=== PATIENT | female | born 1985 | race Caucasian/White ===

== ENCOUNTER 2017-03-13 10:57 | Emergency (ER) | payer MEDICARE, MEDICAID ==
[~2017-03-13] VITALS: Ht 149.9 cm; Wt 62.9 kg
[~2017-03-13 10:57] MED LIST: ACET-44 PO; ARIP10TA17 PO; AZIT250T6 PO; BUPR-51 PO; BUPR300T20 PO; CETI10TA80 PO; CITA-50 PO; DICL100G13 TOP; DOCU-273 PO; FLUT16SP NAS; GUAI100S35 PO; MAGN400O4 PO; MELO-273 PO; MULT-77 PO; OMEP20CA10 PO; POLY119P21 PO; PROP28DR BOTH EYES; TOLT4CAP PO; TRAZ150T80 PO; TRET60CR TOP
--- OUTSIDE RECORDS SUMMARY | 2017-03-13 11:00 | XMS REPORT | Referral Summary ---
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 Name Role Phone James Lizama Primary Care Physician [phone] Encounter VC Date(s): 09/18/16 - 09/18/16 [facility], [address] [place] [address]- Discharge Diagnosis: Chronic constipation Discharge Diagnosis: Right foot pain Discharge Disposition: 01-Home or Self Care Attending Physician: Minor Lizama MD Admitting Physician: Minor Lizama MD Vital Signs Most recent to 1 oldest [Reference Range]: Blood Pressure 106/64 mmHg [90-140/60-90 mmHg] (09/18/16 3:05 PM) Problem List Condition Effective Dates Status Health Status Informant ADHD(Confirmed) Active Allergy(Confirmed) Active ADHD (attention Active deficit hyperactivity disorder)(Confirmed) Bipolar(Confirmed) Active Bladder Active problem(Confirmed) Bronchitis(Confirmed Active ) Depression(Confirmed Active ) Dysmenorrhea(Confirm Active ed) Dysuria(Confirmed) Active alcohol Active syndrome(Confirmed) GERD Active (gastroesophageal reflux disease)(Confirmed) Kidney Resolved stones(Confirmed) Bipolar disease, Active chronic(Confirmed) Mild mental Active retardation(Confirme d) Obesity(Confirmed) Active patient Peptic Resolved ulcer(Confirmed) UTI (urinary tract Active infection)(Confirmed ) Allergies, Adverse Reactions, Alerts Substance Reaction Severity Status Latex Active sulfamethoxazole Active Medications Abilify 10 mg oral tablet 10 mg 1 tabs, Oral, Daily, # 30 tabs, 0 Refill(s) Start Date: 09/18/16 Status: Ordered Aspercream Aspercream, See Instructions, Apply 2 grams to affected joint areas bid prn joint pain. Rescare [id number], # 1 Each, 5 Refill(s) Start Date: 06/12/16 Status: Ordered CeleXA 20 mg oral tablet 1 tabs, Oral, Daily, # 30 tabs, 0 Refill(s) Start Date: 06/16/14 Status: Ordered Flonase 50 mcg/inh nasal spray See Instructions, After shower every evening blow nose then use Flonase spray ( 1 spray nasal daily)., # 1 Each, 2 Refill(s), Pharmacy: [facility] [place] Start Date: 05/16/15 Status: Ordered guaiFENesin 100 mg/5 mL oral liquid 100 mg 5 mL, Oral, q4hr, as needed for cough, # 240 mL, 5 Refill(s), Pharmacy: [facility] [place], 5 mL Oral q4hr,PRN:as needed for cough Start Date: 04/04/16 Status: Ordered Lotrisone 1%-0.05% topical cream 1 angie, Topical, BID, apply sparingly twice daily for 7-10 days until rash is cleared., # 15 g, 0 Refill(s), Pharmacy: [facility] [id number] Start Date: 06/01/16 Status: Ordered Mapap 500 mg oral tablet 500 mg 1 tabs, Oral, q4hr, as needed for pain, # 60 tabs, 0 Refill(s), other reason (Rx) Start Date: 07/09/16 Status: Ordered Milk of Magnesia See Instructions, Take 30 ml PO QD prn, followed by a full glass (8 oz) of liquid., # 480 mL, 0 Refill(s) Start Date: 06/16/14 Status: Ordered omeprazole 20 mg oral delayed release tablet 20 mg 1 tabs, Oral, qAM, # 30 tabs, 5 Refill(s), Pharmacy: [facility] [place], 1 tabs Oral qAM Start Date: 08/07/16 Status: Ordered Orajel 1 angie, Topical, BID, as needed for pain, 0 Refill(s) Start Date: 07/18/15 Status: Ordered Physical Therapy Physical Therapy, See Instructions, Evaluate and treat for R shoulder pain ( M25.511), # 1 Each, 0 Refill(s) Start Date: 07/09/16 Status: Ordered Robafen DM Clear 10 mg-100 mg/5 mL oral liquid 5 mL, Oral, q4hr, # 120 mL, 0 Refill(s), other reason (Rx) Start Date: 07/09/16 Status: Ordered Systane Eye-Both, BID, 0 Refill(s) Start Date: 10/18/15 Status: Ordered Therems M oral tablet 1 tabs, Oral, Daily, # 90 tabs, 3 Refill(s), Pharmacy: [facility] [place] Start Date: 11/04/15 Status: Ordered tolterodine 4 mg oral capsule, extended release 4 mg 1 caps, Oral, Daily, # 90 caps, 3 Refill(s), Pharmacy: [facility] [place], 1 caps Oral Daily,x90 days Start Date: 08/22/16 Stop Date: 08/17/17 Status: Ordered traZODone 150 mg oral tablet 1.5 tabs, Oral, Bedtime (once a day), # 45 tabs, 0 Refill(s), Pharmacy: [facility] [place], 1.5 tabs Oral Bedtime (once a day) Start Date: 09/08/14 Status: Ordered tretinoin 0.05% topical cream 1 angie, Topical, Bedtime (once a day), # 45 g, 3 Refill(s) Start Date: 04/10/16 Status: Ordered Voltaren 1% topical gel 2 g, Topical, QID, as needed for pain, # 100 g, 0 Refill(s) Start Date: 07/09/16 Status: Ordered Wellbutrin XL 150 mg, Oral, Daily, 0 Refill(s) Start Date: 06/16/14 Status: Ordered Wellbutrin XL 300 mg, Oral, Daily, 0 Refill(s) Start Date: 06/16/14 Status: Ordered ZyrTEC 10 mg oral tablet 10 mg 1 tabs, Oral, Daily, # 30 tabs, 3 Refill(s), Pharmacy: [facility] [place], 1 tabs Oral Daily Start Date: 08/07/16 Status: Ordered Results No data available for this section Immunizations Vaccine Date Refusal Reason BCG 06/09/09 BCG 10/13/07 tetanus/diphth/pertuss (Tdap) adult/adol 07/29/15 tetanus/diphth/pertuss (Tdap) adult/adol 03/08/11 diphtheria/pertussis, acel/tetanus ped 08/20/88 diphtheria/pertussis, acel/tetanus ped 04/01/86 diphtheria/pertussis, acel/tetanus ped 85 diphtheria/pertussis, acel/tetanus ped 01/07/81 hepatitis B pediatric vaccine 04/15/95 hepatitis B pediatric vaccine 11/05/94 hepatitis B pediatric vaccine 09/28/94 influenza virus vaccine, inactivated 09/06/15 influenza virus vaccine, inactivated 07/18/14 influenza virus vaccine, live 09/28/13 influenza virus vaccine, live 09/06/12 measles/mumps/rubella virus vaccine 01/07/91 measles/mumps/rubella virus vaccine 08/20/88 poliovirus vaccine, inactivated 01/07/91 poliovirus vaccine, inactivated 08/20/88 poliovirus vaccine, inactivated 04/01/86 poliovirus vaccine, inactivated 85 tetanus-diphth toxoids (Td) adult/adol 04/07/97 varicella virus vaccine 03/15/00 Procedures Procedure Date Related Diagnosis Body Site Appendectomy bladder surgery and paragard1 Cystoscopy2 1Dr. Camryn/Dr. Wadsworth 2urethral calibration and dilatation, hydrodistention of the bladder, and SLT laser vaporization of chronic trigonitis, and bimanual pelvic examination Social History Social History Type Response Smoking Status Never smoker Assessment and Plan Extracted from: Title: Ambulatory Patient Education Author: Minor Lizama MD Date: Home Health Care Constipation, Adult Constipation is when a person has fewer than three bowel movements a week, has difficulty having a bowel movement, or has stools that are dry, hard, or larger than normal. As people grow older, constipation is more common. A low-fiber diet, not taking in enough fluids, and taking certain medicines may make constipation worse. CAUSES Certain medicines, such as antidepressants, pain medicine, iron supplements, antacids, and water pills. Certain diseases, such as diabetes, irritable bowel syndrome (IBS), thyroid disease, or depression. Not drinking enough water. Not eating enough fiber-rich foods. Stress or travel. Lack of physical activity or exercise. Ignoring the urge to have a bowel movement. Using laxatives too much. SIGNS AND SYMPTOMS Having fewer than three bowel movements a week. Straining to have a bowel movement. Having stools that are hard, dry, or larger than normal. Feeling full or bloated. Pain in the lower abdomen. Not feeling relief after having a bowel movement. DIAGNOSIS Your health care provider will take a medical history and perform a physical exam. Further testing may be done for severe constipation. Some tests may include: A barium enema X-ray to examine your rectum, colon, and, sometimes, your small intestine. A sigmoidoscopy to examine your lower colon. A colonoscopy to examine your entire colon. TREATMENT Treatment will depend on the severity of your constipation and what is causing it. Some dietary treatments include drinking more fluids and eating more fiber- rich foods. Lifestyle treatments may include regular exercise. If these diet and lifestyle recommendations do not help, your health care provider may recommend taking wfur-ofo-zbxoema laxative medicines to help you have bowel movements. Prescription medicines may be prescribed if zqms-jee-drguugt medicines do not work. HOME CARE INSTRUCTIONS Eat foods that have a lot of fiber, such as fruits, vegetables, whole grains, and beans. Limit foods high in fat and processed sugars, such as chinese fries, hamburgers, cookies, candies, and soda. A fiber supplement may be added to your diet if you cannot get enough fiber from foods. Drink enough fluids to keep your urine clear or pale yellow. Exercise regularly or as directed by your health care provider. Go to the restroom when you have the urge to go. Do not hold it. Only take vbhd-xmk-aroilck or prescription medicines as directed by your health care provider. Do not take other medicines for constipation without talking to your health care provider first. SEEK IMMEDIATE MEDICAL CARE IF: You have bright red blood in your stool. Your constipation lasts for more than 4 days or gets worse. You have abdominal or rectal pain. You have thin, pencil-like stools. You have unexplained weight loss. MAKE SURE YOU: Understand these instructions. Will watch your condition. Will get help right away if you are not doing well or get worse. This information is not intended to replace advice given to you by your health care provider. Make sure you discuss any questions you have with your health care provider. Document Released: 08/09/2005 Document Revised: 12/02/2015 Document Reviewed: Powered by [employer] Patient Education 2016 Powered by [employer] Musculoskeletal Musculoskeletal Pain Musculoskeletal pain is muscle and mayra aches and pains. These pains can occur in any part of the body. Your caregiver may treat you without knowing the cause of the pain. They may treat you if blood or urine tests, X-rays, and other tests were normal. CAUSES There is often not a definite cause or reason for these pains. These pains may be caused by a type of germ (virus). The discomfort may also come from overuse. Overuse includes working out too hard when your body is not fit. Mayra aches also come from weather changes. Bone is sensitive to atmospheric pressure changes. HOME CARE INSTRUCTIONS Ask when your test results will be ready. Make sure you get your test results. Only take rjwq-ohx-hyoeznu or prescription medicines for pain, discomfort , or fever as directed by your caregiver. If you were given medications for your condition, do not drive, operate machinery or power tools, or sign legal documents for 24 hours. Do not drink alcohol. Do not take sleeping pills or other medications that may interfere with treatment. Continue all activities unless the activities cause more pain. When the pain lessens, slowly resume normal activities. Gradually increase the intensity and duration of the activities or exercise. During periods of severe pain, bed rest may be helpful. Lay or sit in any position that is comfortable. Putting ice on the injured area. Put ice in a bag. Place a towel between your skin and the bag. Leave the ice on for 15 to 20 minutes, 3 to 4 times a day. Follow up with your caregiver for continued problems and no reason can be found for the pain. If the pain becomes worse or does not go away, it may be necessary to repeat tests or do additional testing. Your caregiver may need to look further for a possible cause. SEEK IMMEDIATE MEDICAL CARE IF: You have pain that is getting worse and is not relieved by medications. You develop chest pain that is associated with shortness or breath, sweating, feeling sick to your stomach (nauseous), or throw up (vomit). Your pain becomes localized to the abdomen. You develop any new symptoms that seem different or that concern you. MAKE SURE YOU: Understand these instructions. Will watch your condition. Will get help right away if you are not doing well or get worse. This information is not intended to replace advice given to you by your health care provider. Make sure you discuss any questions you have with your health care provider. Document Released: 11/11/2006 Document Revised: 02/02/2013 Document Reviewed: Powered by [employer] Patient Education 2016 Powered by [employer] No follow up information was provided. Extracted from: Title: Office Visit Note Author: Minor Lizama MD Date: 09/18/16 Assessment/Plan 1.Chronic constipation Possibly due to her medications and her inactivity. Will have her start Colace 100mg daily. High fiber diet. Mag Citrate to get thing started. Then follow it up with Gloria-lax. Follow up in 2-4 weeks. Ordered: Office Visit Level 4 Est 26398 2.Right foot pain Will refer to Podiatry. Ordered: Office Visit Level 4 Est 97132 Abdominal bloating As above Ordered: Office Visit Level 4 Est 93612
--- OUTSIDE RECORDS SUMMARY | 2017-03-13 11:01 | XMS REPORT | Continuity of Care Document ---
Author Author [facility] Organization [facility] Address Unknown Phone Unavailable Care Team Providers Care Face Boss Name Role Phone SIVAKUMAR PUCKETT MD Primary Care Physician [phone] Insurance Providers Guarantor Shanta Romero Address [address] [place] [address] MOM Email NO TO PT PORT 16 Payer [facility] [employer] Plan Policy Number [id number] Subscriber's Name Shanta Romero Relationship 18 Self Effective Date 17 Expiration Date 17 Payer Medicare Policy Number [id number] Subscriber's Name Shanta Romero Relationship 18 Self Chief Complaint and Reason for Visit Chief Complaint Cough,Fever,Flu,URI Reason for Visit Acute bronchitis Problems Active Problems Medical Problem Onset Date Status Contusion of right ring finger Unknown Acute Puncture wound of right thumb w/o foreign body w/o damage to nail Unknown Acute SACRAL CONTUSION Unknown Acute Past Problems Medical Problem Onset Date Acute bronchitis Unknown Medications Current Home Medications Medication Dose Units Route Directions Days Qty Instructions Start Date Acetaminophen (Mapap) 500 Mg Tablet 500 Mg Oral Every 4 Hours as needed for Pain/Fever 05/23/15 Aripiprazole 10 Mg Tablet 10 Mg Oral Bedtime 01/24/17 Azithromycin 250 Mg Tablet 1 Tab Oral Daily 6 Tablet TAKE TWO TABLETS ON DAY ONE, THEN ONE TABLET DAILY UNTIL ALL TAKEN. 01/24/17 Bupropion Hcl (Bupropion Xl) 150 Mg Tab.er.24h 150 Mg Oral Daily 05/23/15 Bupropion Hcl (Bupropion Xl) 300 Mg Tab.sr.24h 300 Mg Oral Daily TAKE WITH 150 MG TO EQUAL 450 MG DAILY 01/28/12 Cetirizine Hcl 10 Mg Tab.chew 10 Mg Oral Daily 01/28/12 Citalopram Hydrobromide (Celexa) 20 Mg Tablet 20 Mg Oral Daily Diclofenac Sodium 100 Gm Gel..gram. 1 Applic Topically Daily as needed for Pain 01/24/17 Docusate Sodium (Dok) 100 Mg Capsule 100 Mg Oral Daily as needed for Constipation 01/24/17 Fluticasone Propionate (Fluticasone Prop 50 Mcg/Actuation Nasal Dora) 120 Dora/16 G Dora 1 Dora Intranasal Daily as needed for Prn Orders 05/23/15 Guaifenesin (Robafen) 100 Mg/5 Ml Liquid 5 Ml Oral Every 4 Hours as needed for Cough 01/24/17 Magnesium Hydroxide (Milk Of Magnesia) 400 Mg/5 Ml Oral.susp 30 Ml Oral Daily as needed for Constipation 04/06/16 Meloxicam 7.5 Mg Tablet 7.5 Mg Oral Daily 01/24/17 Multivit,Ther Iron,Ca,Fa & Min (Therapeutic M Tablet) 1 Tab Tablet 1 Tab Oral Daily 01/28/12 Omeprazole 20 Mg Capsule.dr 20 Mg Oral Daily 05/23/15 Polyethylene Glycol 3350 (Glycolax) 119 Gm Powder 17 Gm Oral Daily 01/24/17 Propylene Glycol/Peg 400 (Systane 0.3-0.4% Eye Drops) 4 Drop/0.4 Ml Solution 1 Drop Both Eyes Three Times A Day 04/06/16 Tolterodine Tartrate (Detrol La) 4 Mg Cap.er.24h 4 Mg Oral Daily 04/06/16 Trazodone Hcl 150 Mg Tablet 225 Mg Oral Bedtime 05/23/15 Tretinoin/Emollient (Tretinoin 0.05% Emollient Crm) 60 Applic/60 Gm Cr 1 Applic Topically Bedtime 05/23/15 Social History Social History Problem Response Recorded Date/Time Onset Date Status Hx Substance Use No 01/24/2017 1:52pm Not Applicable Not Applicable Hx Alcohol Use No 01/24/2017 1:52pm Not Applicable Not Applicable Has the pt used tobacco in the last 12 months No 04/09/2016 8:35am Not Applicable Not Applicable Tobacco Usage none 09/09/2015 3:42pm Not Applicable Not Applicable Query Response Start Date Stop Date Smoking Status Never smoker Hospital Discharge Instructions No hospital discharge instructions. Plan of Care Discharge Date 01/24/17 2:44pm Disposition 01 DISCHARGED HOME, SELF-CARE Condition at Discharge Improved Instructions/Education Provided Acute Bronchitis (ED) Prescriptions See Medication Section Referrals SIVAKUMAR PUCKETT MD Order Date: 2 Days Address: [address] [place] [address] [place], [place] [phone] Note: Care Plan and Goals Physician Care Plan Problem: Acute bronchitis Goal: Follow up with primary care provider Instructions: Take medications and follow care plan as discussed/written Functional Status No functional status results. Allergies, Adverse Reactions, Alerts Allergen Type Severity Reaction Status Last Updated Latex Allergy Mild Active 09/10/15 SULFATE Allergy Unknown Active 05/23/15 Immunizations Query Response on File Recorded Date/Time Hx Influenza Vaccination Y -201404/09/16 8:35am Hx Pneumococcal Vaccination No 04/09/16 8:35am Hx Influenza Vaccination Y -201404/09/16 8:35am DTaP Vaccine History 201409/09/15 12:56pm Influenza Vaccine Hx 201409/09/15 12:56pm Tdap Vaccine Hx 201409/09/15 12:52pm Vital Signs Acute Vital Signs Vital Response Date/Time Temperature (Fahrenheit) 98.2 deg F (96.8 - 99.1) 01/24/2017 2:44pm Temperature (Calculated Celsius) 36.35997 degrees C (36.0 - 37.3) 01/24/2017 2:44pm Pulse Rate (adult) 89 bpm (60 - 100) 01/24/2017 2:44pm Respiratory Rate 18 breaths/min (10 - 20) 01/24/2017 2:44pm O2 Sat by Pulse Oximetry 97 % (90 - 100) 01/24/2017 2:44pm Blood Pressure 99/59 mm Hg 01/24/2017 2:44pm Blood Pressure 102/61 mm Hg 01/24/2017 2:44pm Height (Feet) 4 feet 01/24/2017 1:15pm Height (Inches) 11.00 inches 01/24/2017 1:15pm Weight (Kilograms) 64.300 kg 01/24/2017 1:15pm Body Mass Index (BMI) 28.0 01/24/2017 1:15pm Results Laboratory Results Test Name Result Units Flags Reference Collection Date/Time Result Date/ Time Comments Hemoglobin 11.4 GM/DL L 12-16 01/24/2017 1:48pm 01/24/2017 1:53pm Hematocrit 34.2 % L 36-46 01/24/2017 1:48pm 01/24/2017 1:53pm Icterus Index < 2 0-7 01/24/2017 1:48pm 01/24/2017 2:02pm Chemistry Specimen Hemolysis < 15 0-25 01/24/2017 1:48pm 01/24/2017 2 :02pm 0-25: Specimen Exhibited No Hemolysis. Turbidity < 20 0-20 01/24/2017 1:48pm 01/24/2017 2:02pm Sodium Level 137 MEQ/L 134-144 01/24/2017 1:48pm 01/24/2017 2:02pm Potassium Level 4.1 MEQ/L 3.6-5 01/24/2017 1:48pm 01/24/2017 2:02pm Chloride Level 104 MEQ/L 98-107 01/24/2017 1:48pm 01/24/2017 2:02pm Carbon Dioxide Level 24 MEQ/L 22-30 01/24/2017 1:48pm 01/24/2017 2: 02pm Anion Gap 9 MEQ/L 5-15 01/24/2017 1:48pm 01/24/2017 2:02pm Blood Urea Nitrogen 18.0 MG/DL H 7-17 01/24/2017 1:48pm 01/24/2017 2: 02pm Creatinine 1.0 MG/DL 0.7-1.2 01/24/2017 1:48pm 01/24/2017 2:02pm BUN/Creatinine Ratio 18 RATIO 6-26 01/24/2017 1:48pm 01/24/2017 2:02pm Glomerular Filtration Rate Calc 65 01/24/2017 1:48pm 01/24/2017 2: 02pm Glucose Level 89 MG/DL 65-110 01/24/2017 1:48pm 01/24/2017 2:02pm Calculated Osmolality 265 MOSM/KG 261-280 01/24/2017 1:48pm 01/24/2017 2:02pm Calcium Level 8.7 MG/DL 8.4-10.2 01/24/2017 1:48pm 01/24/2017 2:02pm Troponin I < 0.012 ng/ml 0-0.12 01/24/2017 1:48pm 01/24/2017 2:14pm Troponin values with a difference of 55% increase from orginal troponin value represent a true biological DELTA value. (%increase Calc=Orginal Troponin value, divided by subsequent Troponin value, multiplied by 100) Name: SHANTA ROMERO Unit #: [id number] : 1985 Sex: F Admit Date: Loc / Svc: ED Discharge Date: DIAGNOSTIC IMAGING REPORT [facility] [id number] ITS.REASON: cough PROCEDURE: CHEST 2-VIEWS UPRIGHT (PA \T\ LAT) Encounter: Initial COMPARISON: None FINDINGS: The lungs are clear without evidence of focal abnormal airspace opacity. There is no pleural effusion or pneumothorax. The heart size, mediastinal contours and pulmonary vascularity are within normal limits. Slightly exaggerated thoracic kyphosis. IMPRESSION: No acute cardiopulmonary disease. . Procedures Procedure Status Date Provider(s) Eeg awake and drowsy Completed 12/11/16 Encounters Encounter Location Arrival/Admit Date Discharge/Depart Date Attending Provider Departed Emergency Room [facility] 01/24/17 1:11pm 01/24/17 2: 44pm ENEDELIA SHERMAN DO Registered [facility] 12/11/16 1:55pm EMERY ZAMUDIO MD Recent Diagnosis
--- OUTSIDE RECORDS SUMMARY | 2017-03-13 11:03 | XMS REPORT | Referral Summary ---
Author Author [facility] Kieth [facility], Family Medicine Organization [facility] Address Unknown Phone Unavailable Care Team Providers Care Photographer Aerial Name Role Phone James Lizama Primary Care Physician [phone] Encounter VC Date(s): 10/17/16 - 10/17/16 [facility] Keith Newton [address] [place] [id number] Discharge Diagnosis: Abdominal bloating Discharge Diagnosis: Constipation Discharge Disposition: 01-Home or Self Care Attending Physician: Noreen Huitron PA-C Admitting Physician: Noreen Huitron PA-C Vital Signs Most recent to 1 oldest [Reference Range]: Blood Pressure 108/62 mmHg [90-140/60-90 mmHg] (10/17/16 8:05 AM) Problem List Condition Effective Dates Status Health Status Informant ADHD(Confirmed) Active Allergy(Confirmed) Active ADHD (attention Active deficit hyperactivity disorder)(Confirmed) Bipolar(Confirmed) Active Bladder Active problem(Confirmed) Bronchitis(Confirmed Active ) Depression(Confirmed Active ) Dysmenorrhea(Confirm Active ed) Dysuria(Confirmed) Active alcohol Active syndrome(Confirmed) Left foot Active pain(Confirmed) GERD Active (gastroesophageal reflux disease)(Confirmed) Kidney Resolved stones(Confirmed) Bipolar disease, Active chronic(Confirmed) Mild mental Active retardation(Confirme d) Obesity(Confirmed) Active patient Peptic Resolved ulcer(Confirmed) Extensor tendinitis Active of foot(Confirmed) UTI (urinary tract Active infection)(Confirmed ) Allergies, Adverse Reactions, Alerts Substance Reaction Severity Status Latex Active sulfamethoxazole Active Medications Abilify 10 mg oral tablet 10 mg 1 tabs, Oral, Daily, # 30 tabs, 0 Refill(s) Start Date: 09/18/16 Status: Ordered Aspercream Aspercream, See Instructions, Apply 2 grams to affected joint areas bid prn joint pain. Rescare [id number], # 1 Each, 5 Refill(s) Start Date: 06/12/16 Status: Ordered CeleXA 20 mg oral tablet 1 tabs, Oral, Daily, # 30 tabs, 0 Refill(s) Start Date: 06/16/14 Status: Ordered Colace 100 mg oral capsule 100 mg 1 caps, Oral, Daily, # 90 caps, 1 Refill(s), Pharmacy: [facility] [place], Please disregard PRN prescription., 1 caps Oral Daily Start Date: 10/02/16 Status: Ordered Flonase 50 mcg/inh nasal spray [...] for cough Start Date: 04/04/16 Status: Ordered Mapap 500 mg oral tablet 500 mg 1 tabs, Oral, q4hr, as needed for pain, # 60 tabs, 0 Refill(s), other reason (Rx) Start Date: 07/09/16 Status: Ordered meloxicam 7.5 mg oral tablet 7.5 mg 1 tabs, Oral, Daily, # 30 tabs, 2 Refill(s) Start Date: 10/10/16 Status: Ordered Milk of Magnesia See Instructions, [...] 0 Refill(s) Start Date: 07/18/15 Status: Ordered Probiotic Formula (Bacillus Coagulans) oral capsule 1 caps, Oral, Daily, # 30 caps, 0 Refill(s) Start Date: 10/17/16 Status: Ordered Systane Eye-Both, BID, 0 Refill(s) Start Date: 10/18/15 Status: Ordered Therems M oral tablet 1 tabs, Oral, Daily, # 90 tabs, 3 Refill(s), Pharmacy: [facility] [place] Start Date: 10/02/16 Status: Ordered tolterodine 4 mg oral capsule, [...] B pediatric vaccine 09/28/94 influenza virus vaccine, inactivated1 10/16/16 influenza virus vaccine, inactivated 09/06/15 influenza virus vaccine, inactivated 07/18/14 influenza virus vaccine, live 09/28/13 influenza virus vaccine, live 09/06/12 measles/mumps/rubella virus vaccine 01/07/91 measles/mumps/rubella virus vaccine 08/20/88 poliovirus vaccine, inactivated 01/07/91 poliovirus vaccine, inactivated 08/20/88 poliovirus vaccine, inactivated 04/01/86 poliovirus vaccine, inactivated 85 tetanus-diphth toxoids (Td) adult/adol 04/07/97 varicella virus vaccine 03/15/00 1Location History: [facility] Procedures Procedure Date Related Diagnosis Body Site Appendectomy bladder surgery and paragard1 Cystoscopy2 1Dr. Camryn/Dr. Wadsworth 2urethral calibration and dilatation, hydrodistention of the bladder, and SLT laser vaporization of chronic trigonitis, and bimanual pelvic examination Social History Social History Type Response Smoking Status Never smoker Assessment and Plan Extracted from: Title: Office Visit Note- F/u abd Author: Noreen Huitron PA-C Date: 10/17/16 bloating and constipation Assessment/Plan Abdominal bloating Mother would like an US to evaluate further. Pt thinks her bloating is better though. Will order, and pt may schedule. Ordered: Office Visit Level 3 Est 48607 US Pelvis Non-OB Complete Constipation Pt is advised to continuewith Miralax daily, and may take Colace prn. Continue with plenty of fluids and exercise, and also may add on fiber to the diet. I recommended Fibercon or Citrucel. Pt is to RTC if still having issues with her bowels. Ordered: Office Visit Level 3 Est 13435
--- OUTSIDE RECORDS SUMMARY | 2017-03-13 11:03 | XMS REPORT | Continuity of Care Document ---
Author Author [facility] Organization [facility] Address Unknown Phone Unavailable Allergies Medications Problems Procedures Results Encounters ACCT No. Visit Date/Time Discharge Status Pt. Type Provider Facility Loc./Unit Complaint [id number] 01/18/2014 16:20:00 01/18/2014 23 :59:59 CLS Outpatient
[2017-03-13 11:30] VITALS: Ht 149.9 cm; Wt 62.9 kg
[2017-03-13] MEDS ORDERED: CETI-115 PO (13:28)
[2017-03-13] MEDS ORDERED: PROP10DR5 BOTH EYES (13:31)
[2017-03-13] MEDS ORDERED: MULT1TAB PO (13:31)
[2017-03-13] MEDS ORDERED: ALBU18HF2 INH (13:32)
[2017-03-13] MEDS ORDERED: TOPI50TA25 PO (13:33)
--- NOTE | 2017-03-13 13:34 | NUR ---
UPDATE/ORTHOSTATIC BP PATIENT REPORTS SLIGHT DIZZINESS WHEN GOING FROM LYING TO SITTING AND SLIGHT INCREASE IN DIZZINESS WHEN GOING FROM SITTING TO STANDING.
--- OUTSIDE RECORDS SUMMARY | 2017-03-13 13:34 | XMS REPORT | Continuity of Care Document ---
Author Author [facility] Organization [facility] Address Unknown Phone Unavailable Allergies Medications Problems Procedures Results Encounters ACCT No. Visit Date/Time Discharge Status Pt. Type Provider Facility Loc./Unit Complaint [id number] 01/18/2014 16:20:00 01/18/2014 23 :59:59 CLS Outpatient
--- NOTE | 2017-03-13 13:35 | NUR ---
LAB LAB AT BEDSIDE FOR BLOOD DRAW
--- NOTE | 2017-03-13 13:44 | ERPDOC ---
Departure Disposition Decision Date: Mar 13, 2017 Disposition Decision Time: 14:03 Disposition: 01 DISCHARGED HOME, SELF-CARE Impression Impression Impression: Primary Impression: Menorrhagia Additional Impressions: Orthostatic dizziness Dehydration Condition: Stable Seen By: Mid-level only Referrals: SIVAKUMAR PUCKETT MD (PCP) Recommend follow up in one week if symptoms continue or sooner if needed. Patient Instructions: Dizziness (ED), Menorrhagia (ED) Problems/Meds/Labs Reviewed?: Yes Medications reviewed and manag: Yes Additional Instructions: YOUR HEMOGLOBIN HAS IMPROVED SINCE JANUARY FROM 11.4 TO 12.7. THAT INDICATES THAT YOU DO NOT HAVE EXCESSIVE BLOOD LOSS DUE TO YOUR PERIOD THAT IS CAUSING YOU TO BE ANAEMIC. WE RECOMMEND YOU CHANGE POSITIONS SLOWLY AND INCREASE YOUR ORAL FLUIDS. YOUR LAB WORK DID INDICATE MILD DEHYDRATION. THIS COULD BE THE SOURCE OF YOUR DIZZINESS. FOLLOW UP WITH YOUR DOCTOR IF SYMPTOMS CONTINUE OR YOUR HEAVY PERIODS CONTINUE. Follow up care ordered?: Yes Mental Status: Alert, Oriented HPI - General Medical General Chief Complaint: Dizzy Stated Complaint: DIZZY, LOW BP Time Seen by Provider: 13:09 Source: patient Exam Limitations: no limitations HPI - General Medical Initial Comments Patient presents with complaints of dizziness, low blood pressure and heavier than normal menstrual bleeding. Patient states that her blood pressure was 94 systolically. Patient describes dizziness occurring primarily with position changes. She states that she has monthly periods, usually lasting approximately 5 days. This period started on Saturday but heavy bleeding started on Saturday. Patient did have lab work drawn in January which indicated a hemoglobin of 11.4 and hct 34.2. Patients EMR indicates normal blood pressures for her have been 98-115 systolically with prior visits. Blood pressure today is 115/64 and HR 88. Orthostatics are normal as follows, 110 sys and 88 HR with sitting; 115 sys and 88 with sitting; 111 sys and 92 HR with standing. Will check CBC and BMP. Patient denies having pain Occurred At: home Onset: Gradual Modifying Factors: IMPROVES WITH: rest, WORSE WITH: movement, other Associated Symptoms: DENIES: chest pain, cough, diaphoresis, fever/chills, headaches, loss of appetite, malaise, nausea/vomiting, shortness of breath, syncope, weakness Hx of Similar Symptoms: No Allergies: Coded Allergies: latex (Verified Allergy, Mild, 03/13/17) Sulfa (Sulfonamide Antibiotics) (Verified Allergy, Unknown, 03/13/17) Past History Past Medical History ENMT: allergies GI: GERD Infectious: other Psychological: depression Surgical History General: appendix Vaccines Hx Influenza Vaccination: Yes () Hx Pneumococcal Vaccination: No Social History Substance Use Type: does not use Alcohol Intake: none Review of Systems Constitutional Constitutional: dizziness, see HPI, DENIES: chills, fever Eyes General: DENIES: burning, itching Lids/Accessories: DENIES: erythema, swelling Vision: DENIES: blurring, double vision ENMT Ears: DENIES: pain Hearing: DENIES: tinnitus Balance: DENIES: vertigo Sinuses: DENIES: rhinorrhea Nose: DENIES: change in smell, pain Mouth/Throat: DENIES: painful swallowing, scratchy throat, sore throat Cardiovascular Cardiac: DENIES: chest pain, orthopnea Rhythm/Rate: DENIES: irregular beat, palpitations, tachycardia Pulmonary Respiratory: DENIES: cough, dyspnea, pleuritic chest pain, tachypnea GI Upper Abdomen: see HPI, DENIES: nausea, pain, vomiting Lower Abdomen: see HPI, DENIES: constipation, diarrhea, pain General: DENIES: dysuria, frequency, urgency Female: LMP, see HPI, usual length of period Neurological General: DENIES: headache Hematologic/Lymphatic Hematologic/Lymphatic: anemia, DENIES: easy bruising, frequent nosebleeds Allergic/Immunological Allergic/Immunoligical: DENIES: hives, sneezing All other Systems All Other Systems: Reviewed and Negative Physical Exam General General Nourishment: well nourished, well developed, appears stated age, no acute distress, adult General Body Habitus: well groomed Vitals and Pain First Documented Vital Signs Date Time Temp Pulse Resp B/P Pulse Ox O2 Delivery O2 Flow Rate FiO2 03/13/17 11:30 98.5 88 16 115/64 97 Room Air Weight: Kilograms: 62.900 Height (feet): 4 Height (inches): 11.00 Triage Pain Scale: Normal Exams: Head: Normocephalic w/o trauma Eyes: Pupils are PERRLA w/ EOMI, No scleral icterus, irritation, or foreign bodies noted Neck: Full range of motion, without adenopathy, JVD, bruits or thyromegaly Chest/Resp: Clear all jaeger, with good airflow, and symmetry bilaterally CV: Regular rate and rhythm, without murmur or gallop, Pulses 2+ all extremities, capillary refill, <2 seconds all ext., no pedal edema noted Abdomen: Bowel sounds positive, soft, non-tender, non-distended, no hepatosplenomegaly, masses or bruits noted Lymphatic: No lymphadenopathy, or lymphedema noted Musculoskeletal: No tenderness, or deformity noted, good range of motion, all extremities Integumentary: No rashes, hives, or bruising noted, hair and nails, without abnormality Neurologic: Patient is alert, and oriented, cranial nerves, motor/sensory/ cerebellar, exams w/o gross deficits, to observation Psychiatric: Patient exhibits, appropriate attention, emotion and affect Differential Diagnoses Considering: Hypo/Hyperkalemia, Hypo/Hypernatremia, Medication Effect, Other ( anemia, hypovolemia, dehydration ) Progress Results/Orders Orders Procedure Category Date Status Time Orthostatic Vitals ONEL 03/13/17 Complete Signs 13:23 Cbc W/Auto LAB 03/13/17 Complete Diff-Reflex Manual Bmp - Basic Metabolic LAB 03/13/17 Complete Panel Ondansetron Odt PHA 03/13/17 Complete (Zofran Odt) 14:30 Lab Results Laboratory Tests Test 03/13/17 13:37 White Blood Count 9.3T/MM3 Red Blood Count 4.36M/MM3 Hemoglobin 12.7GM/DL Hematocrit 38.0% Mean Corpuscular Volume 87.2UM3 Mean Corpuscular Hemoglobin 29.1UUG Mean Corpuscular Hemoglobin Concent 33.4GM/DL RDW Standard Deviation 39.5FL Platelet Count 258T/MM3 Mean Platelet Volume 10.8UM3 Immature Granulocyte % (Auto) 0.1% Neutrophils (%) (Auto) 66.3% Lymphocytes (%) (Auto) 25.1% Monocytes (%) (Auto) 6.9% Eosinophils (%) (Auto) 1.5% Basophils (%) (Auto) 0.1% Absolute Immature Granulocyte (auto 0.01T/MM3 Absolute Neutrophils (auto) 6.2T/MM3 Absolute Lymphocytes (auto) 2.3T/MM3 Absolute Monocytes (auto) 0.6T/MM3 Absolute Eosinophils (auto) 0.1T/MM3 Absolute Basophils (auto) 0.0T/MM3 Turbidity < 20 Sodium Level 146MEQ/L Potassium Level 3.4MEQ/L Chloride Level 108MEQ/L Carbon Dioxide Level 24MEQ/L Anion Gap 14MEQ/L Blood Urea Nitrogen 14.0MG/DL Creatinine 1.1MG/DL Glomerular Filtration Rate Calc 58 BUN/Creatinine Ratio 13RATIO Glucose Level 103MG/DL Calculated Osmolality 282MOSM/KG Calcium Level 9.3MG/DL Icterus Index < 2 Chemistry Specimen Hemolysis < 15 Medications Current ED Medications Ondansetron HCl (Zofran Odt) 4 mg O ONCE PO Last administered on 03/13/17t 14: 38; Start 03/13/17 at 14:30; Stop 03/13/17 at 14:31; Status DC Progress Progress 1403: Hemoglobin is 12.7 which is up from 11.4 in January. Orthostatic vital signs are stable. Lab work does indicate some mild dehydration and this , with the heavy menses, are likely the source of her sx. Encouraged to drink more water and f/u with PCP if not improved. DEION BELL APRN Mar 13, 2017 13:44
[2017-03-13 13:55] LABS: BASOPHILS % (AUTO) 0.1 % (0-2); EOSINOPHILS # (AUTO) 0.1 T/MM3 (0-0.5); EOSINOPHILS % (AUTO) 1.5 % (0-4); HGB - HEMOGLOBIN 12.7 GM/DL (12-16); IMMATURE GRANULOCYTE # (AUTO) 0.01 T/MM3 (0.00-0.03); IMMATURE GRANULOCYTE % (AUTO) 0.1 % (0.0-0.5); LYMPHOCYTES # (AUTO) 2.3 T/MM3 (1-4.8); LYMPHOCYTES % (AUTO) 25.1 % (23-45); MEAN CORPUSCULAR HGB 29.1 UUG (26-34); MEAN CORPUSCULAR HGB CONC(MCHC 33.4 GM/DL (31-37); MEAN CORPUSCULAR VOLUME 87.2 UM3 (80-100); MEAN PLATELET VOLUME 10.8 UM3 (9.4-12.4); MONOCYTES # (AUTO) 0.6 T/MM3 (0-0.8); MONOCYTES % (AUTO) 6.9 % (0-9.0); NEUTROPHILS #(AUTO)-ABSOLUTE 6.2 T/MM3 (1.8-7.7); NEUTROPHILS % (AUTO) 66.3 % (33-66); RED BLOOD COUNT 4.36 M/MM3 (4.00-5.20); WBC - WHITE BLOOD COUNT 9.3 T/MM3 (4.5-11.0)
[2017-03-13 14:04] LABS: ANION GAP 14 MEQ/L (5-15); BUN/CREATININE RATIO 13 RATIO (6-26); CALCIUM 9.3 MG/DL (8.4-10.2); CHLORIDE 108 MEQ/L (98-107); CO2 - CARBON DIOXIDE 24 MEQ/L (22-30); CREATININE 1.1 MG/DL (0.7-1.2); GLOMERULAR FILTRATION RATE 58; GLUCOSE 103 MG/DL (65-110); POTASSIUM 3.4 MEQ/L (3.6-5); SODIUM 146 MEQ/L (134-144)
[2017-03-13] MEDS ORDERED: ONDANSETRON ODT 4 MG TAB PO ONE (14:30)
[2017-03-13 14:40] VITALS: BP 125/58; PULSE 90; RESP 16; TEMP 98.5; O2SAT 99
== END 2017-03-13 14:40 | disposition home or self-care (01) ==
LOC: ED 10:57
DX: R42 Dizziness and giddiness (principal); N92.0 Excessive and frequent menstruation with regular cycle; E86.0 Dehydration
CPT/HCPCS: 36415; 80048; 85025; 99283; A9270